=== PATIENT | male | born 2000 | race Two or more races ===

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

== ENCOUNTER 2023-08-01 18:57 | Emergency (ER) | payer MEDICAID ==
[~2023-08-01] VITALS: Ht 190.5 cm; Wt 116.0 kg
[2023-08-01 19:10] VITALS: BP 138/76; PULSE 83; RESP 16; TEMP 98.5; O2SAT 99
== END 2023-08-01 22:17 | disposition left against medical advice (07) ==
LOC: ER 18:57
DX: S06.9X9A Unspecified intracranial injury with loss of consciousness of unspecified duration, initial encounter (principal); Q35.9 Cleft palate, unspecified; Z88.0 Allergy status to penicillin; Z88.6 Allergy status to analgesic agent; Z98.890 Other specified postprocedural states; W18.39XA Other fall on same level, initial encounter; Y93.89 Activity, other specified; Y92.89 Other specified places as the place of occurrence of the external cause; Y99.8 Other external cause status
CPT/HCPCS: 99281